=== PATIENT | female | born 1955 | race African-American/Black ===

== ENCOUNTER 2017-12-27 15:27 | Inpatient (IN) | payer OTHER ==
[2017-12-27 16:13] VITALS: BMI 23.3
--- NOTE | 2017-12-27 20:56 | HP ---
COWS - Scale Resting Pulse: 0= [place] 80 or Below Sweatin= Chills/Flushing Restless Observation: 1= Difficult to Sit Still Pupil Size: 1= Pupils >than Normal Bone or Joint Aches: 4=Acute Joint/Muscle Pain Runny Nose/ Eye Tearin= Runny Nose/Eyes GI Upset > 30mins: 2= Nausea/Diarrhea Tremor Observation: 2= Slight Tremor Visible Yawning Observation: 1= 1-2x During Session Anxiety or Irritability: 2=Irritable/Anxious Goose Flesh Skin: 0=Smooth Skin COWS Score: 16 Admission [facility] Chief Complaint: C/O WITHDRAWAL SX'S DUE TO HEROIN WITHDRAWAL. SEEKING DETOX TXMENT Allergies/Adverse Reactions: Allergies Allergy/AdvReac Type Severity Reaction Status Date / Time lactose Allergy Severe Vomiting Verified 12/27/17 17:09 History of Present Illness: 62 Y.O. FEMALE WITH LONG HX/O HEROIN DEPENDENCE HERE FOR ADMISSION TO DETOX. CLIENT REPORTS LAST DETOX/REHAB OVER 5 YEARS AGO. REFERRED BY HER SENIOR RESIDENCE COUNSELOR. REPORTS LONGEST CLEAN TIME 6 YEARS. DENIES LEGAL ISSUES Exam Limitations: No Limitations - Ebola screening Have you traveled outside of the country in the last 21 days: No (N) Have you had contact with anyone from an Ebola affected area: No Have you been sick,other than usual withdrawal symptoms: No Do you have a fever: No - Review of Systems Constitutional: Chills, Malaise, Night Sweats, Changes in sleep EENT: reports: Nose Congestion, Throat Pain Respiratory: reports: No Symptoms reported Cardiac: reports: No Symptoms Reported GI: reports: Diarrhea, Nausea, Poor Appetite, Poor Fluid Intake, Abdominal cramping : reports: No Symptoms Reported Musculoskeletal: reports: No Symptoms Reported Integumentary: reports: Other (HYPERPIGMENTATION OF THE SKIN) Neuro: reports: Headache Endocrine: reports: No Symptoms Reported Hematology: reports: No Symptoms Reported Psychiatric: reports: Anxious Other Systems: Reviewed and Negative Patient History - Patient Medical History Hx Asthma: No Hx Chronic Obstructive Pulmonary Disease (COPD): No Hx Cancer: Yes (MULTIPLE MYELOMA) Hx Cardiac Disorders: No Hx Congestive Heart Failure: No Hx Hypertension: No Hx Hypercholesterolemia: No Hx Pacemaker: No HX Cerebrovascular Accident: No Hx Seizures: No Hx Dementia: No Hx Diabetes: No Hx Gastrointestinal Disorders: Yes (GERD) Hx Liver Disease: No Hx Genitourinary Disorders: No Hx Sexually Transmitted Disorders: No Hx Renal Disease (ESRD): No Hx Thyroid Disease: No Hx Human Immunodeficiency Virus (HIV): No Hx Hepatitis C: No Hx Depression: Yes Hx Suicide Attempt: No Hx Bipolar Disorder: No Hx Schizophrenia: No Other Medical History: DENIES - Patient Surgical History Past Surgical History: No Hx Neurologic Surgery: No Hx Cataract Extraction: No Hx Cardiac Surgery: No Hx Lung Surgery: No Hx Breast Surgery: No Hx Breast Biopsy: No Hx Abdominal Surgery: No Hx Appendectomy: No Hx Cholecystectomy: No Hx Genitourinary Surgery: No Hx Section: No Hx Orthopedic Surgery: No Anesthesia Reaction: No - PPD History Previous Implant?: Yes Documented Results: Negative w/o proof Implanted On Prior R Admission?: No PPD to be Administered?: Yes - Reproductive History Patient is a Female of Child Bearing Age (11 -55 yrs old): No Patient : No (NEG UHCG) - Smoking Cessation Smoking history: Former smoker Have you smoked in the past 12 months: No Hx Chewing Tobacco Use: No Initiated information on smoking cessation: No - Substance & Tx. History Hx Alcohol Use: Yes Hx Substance Use: Yes Substance Use Type: Alcohol, Cocaine Hx Substance Use Treatment: Yes (DOES NOT RECALL) - Substances Abused Heroin Route: Inhalation Frequency: Daily Amount used: 5 bags Age of first use: 13 Date of Last Use: 12/27/17 Cocaine Route: Inhalation Frequency: Daily Amount used: 5 bags Age of first use: 14 Date of Last Use: 12/27/17 Family Disease History - Family Disease History Family Disease History: CA: Mother (LYMPH NODES) Admission Physical Exam BHS - Vital Signs Vital Signs: Vital Signs - 24 hr 12/27/17 16:10 Temperature 96.3 F L Pulse Rate 64 Respiratory 20 Rate Blood Pressure 127/84 - Physical General Appearance: Yes: Appropriately Dressed, Mild Distress, Tremorous, Irritable, Other (SLEEPING AT TIME BUT AROUSABLE) HEENTM: Yes: EOMI, Normal ENT Inspection, Normocephalic, PATRICK, Nasal Congestion , Pharyngeal Erythemia Respiratory: Yes: Chest Non-Tender, Lungs Clear, Normal Breath Sounds, No Respiratory Distress, No Accessory Muscle Use Neck: Yes: Supple, Trachea in good position, Other (+ LAD) Breast: Yes: Breast Exam Deferred Cardiology: Yes: Regular Rhythm, Regular Rate, S1, S2 Abdominal: Yes: Normal Bowel Sounds, Non Tender, Soft Genitourinary: Yes: Within Normal Limits Back: Yes: Normal Inspection Musculoskeletal: Yes: full range of Motion, Gait Steady Extremities: Yes: Normal Capillary Refill, Normal Range of Motion, Non-Tender, Tremors Neurological: Yes: Fully Oriented, Alert, Motor Strength 5/5 Integumentary: Yes: Dry, Other (HPERPIGMENTATION OF THE HANDS) Lymphatic: Yes: Within Normal Limits - Diagnostic (1) Opioid dependence with withdrawal Current Visit: Yes Status: Chronic (2) Cocaine dependence, uncomplicated Current Visit: Yes Status: Chronic (3) Pharyngitis Current Visit: Yes Status: Chronic Qualifiers: Pharyngitis/tonsillitis etiology: unspecified etiology Qualified Code(s): J02.9 - Acute pharyngitis, unspecified (4) GERD (gastroesophageal reflux disease) Current Visit: Yes Status: Chronic Qualifiers: Esophagitis presence: without esophagitis Qualified Code(s): K21.9 - Gastro -esophageal reflux disease without esophagitis Cleared for Admission [facility] - Detox or Rehab [facility] Level of Care: Medically Managed Detox Regimen/Protocol: Methadone Claeared for Rehab Admission: No [facility] Breath Alcohol Content Breath Alcohol Content: 0 Urine Pregancy Test - Result Urine Test Results: Negative- NO Line Present Urine Drug Screen - Results Drug Screen Negative: No Urine Drug Screen Results: LUCIO-Cocaine, OPI-Opiates
[2017-12-27] MEDS ORDERED: NICOTINE POLACRILEX 2 MG GUM BC PRN (21:02)
[2017-12-27] MEDS ORDERED: P-EPHED 60MG/TRIPROLIDI 2.5MG TABLET PO PRN (21:02)
[2017-12-27] MEDS ORDERED: MENTHOL/PHENOL 1 EACH UD MM PRN (21:02)
[2017-12-27] MEDS ORDERED: IBUPROFEN 400 MG TABLET (FP) PO PRN (21:02)
[2017-12-27] MEDS ORDERED: MAGNESIUM HYDROX 2400MG/30ML ORAL SUSPENSION 30 ML CUP PO PRN (21:02)
[2017-12-27] MEDS ORDERED: MAGNESIUM CITRATE 300 ML BOTTLE PO PRN (21:02)
[2017-12-27] MEDS ORDERED: METHADONE HCL 10 MG TABLET (FOR DETOX USE ONLY) PO ONE (21:02)
[2017-12-27] MEDS ORDERED: guaiFENesin/D-METHORPHAN HB 10 ML UNIT-DOSE CUPS PO PRN (21:02)
[2017-12-27] MEDS ORDERED: MAG HYDROX/AL HYDROX/SIMETH 30 ML UNIT-DOSE CUP PO PRN (21:02)
[2017-12-27] MEDS ORDERED: LOPERAMIDE HCL 2 MG CAPSULE PO PRN (21:02)
[2017-12-27] MEDS: THIAMINE HCL 100 MG TABLET (FP) PO SCH (22:59)
[2017-12-27] MEDS: METHADONE HCL 10 MG TABLET (FOR DETOX USE ONLY) PO ONE (22:59)
[2017-12-27] MEDS: AMOXICILLIN 500 MG CAPSULE (FP) PO SCH (23:02)
[2017-12-27 23:03] LABS: URINE APPEARANCE SLCLOUDY; URINE BILIRUBIN NEGATIVE (NEGATIVE); URINE BLOOD NEGATIVE (NEGATIVE); URINE COLOR YELLOW; URINE GLUCOSE (UA) NEGATIVE (NEGATIVE); URINE KETONE NEGATIVE (NEGATIVE); URINE NITRITE NEGATIVE (NEGATIVE); URINE PROTEIN NEGATIVE (NEGATIVE); URINE UROBILINOGEN NEGATIVE mg/dL (0.2-1.0)
[2017-12-27 23:09] LABS: URINE LEUK ESTERASE 3+ (NEGATIVE)
[2017-12-27 23:12] LABS: EPI CELLS FEW /HPF (FEW); URINE BACTERIA RARE /hpf (NONE SEEN); URINE MUCUS RARE
[2017-12-28] MEDS ORDERED: METHADONE HCL 10 MG TABLET (FOR DETOX USE ONLY) PO ONE (10:00)
[2017-12-28] MEDS: AMOXICILLIN 500 MG CAPSULE (FP) PO SCH ×2 (10:30→22:29)
[2017-12-28] MEDS: PRENATAL VITAMINS W/ FOLIC ACID TABLET (FP) PO SCH (10:30)
[2017-12-28] MEDS: diazePAM 5 MG TABLET PO PRN ×2 (10:30→17:53)
[2017-12-28 10:50] LABS: HEMATOCRIT 32.9 % (32.4-45.2); HEMOGLOBIN 11.1 GM/dL (10.7-15.3); MCH 30.5 pg (25.7-33.7); MCHC 33.6 g/dl (32.0-36.0); MEAN CELL VOLUME 90.8 fl (80-96); MEAN PLT VOLUME 8.3 fl (7.5-11.1); PLATELET COUNT 311 K/MM3 (134-434); RBC 3.62 M/mm3 (3.60-5.2); RDW 16.3 % (11.6-15.6)
[2017-12-28 11:22] LABS: CHLORIDE 105 mmol/L (98-107); POTASSIUM 4.1 mmol/L (3.5-5.1); SODIUM 143 mmol/L (136-145)
[2017-12-28 11:43] LABS: ALBUMIN 3.1 g/dl (3.4-5.0); ALK PHOS 38 U/L (45-117); ANION GAP 8 (8-16); BILIRUBIN,TOTAL 1.2 mg/dL (0.2-1.0); BLOOD UREA NITROGEN 13 mg/dL (7-18); CALCIUM 9.1 mg/dL (8.5-10.1); CO2 30 mmol/L (21-32); CREATININE 0.8 mg/dL (0.55-1.02); GLUCOSE,RANDOM 86 mg/dL (74-106); SGOT/AST 24 U/L (15-37); SGPT/ALT 14 U/L (12-78); TOT PROT 7.9 g/dl (6.4-8.2)
--- NOTE | 2017-12-28 12:03 | PN ---
BHS COWS - Scale Resting Pulse: 0= [place] 80 or Below Sweatin= Chills/Flushing Restless Observation: 3= Extraneous Movement Pupil Size: 1= Pupils >than Normal Bone or Joint Aches: 2= Severe Diffuse Aches Runny Nose/ Eye Tearin= Runny Nose/Eyes GI Upset > 30mins: 3= Vomiting/Diarrhea Tremor Observation of Outstretched Hands: 2= Slight Tremor Visible Yawning Observation: 1= 1-2x During Session Anxiety or Irritability: 2=Irritable/Anxious Goose Flesh Skin: 0=Smooth Skin COWS Score: 17 S Progress Note (SOAP) Subjective: ALERT,IRRITABLE,ANXIOUS,INTERRUPTED SLEEP,TREMOR,PAIN IN THE BODY AND BACK Objective: 12/28/17 12:00 Vital Signs Temperature 97.7 F 12/28/17 10:10 Pulse Rate 57 L 12/28/17 10:10 Respiratory Rate 16 12/28/17 10:10 Blood Pressure 154/72 12/28/17 10:10 O2 Sat by Pulse Oximetry (%) EKG SINUS BRADYCARDIA 53/MIN NO CHEST PAIN,NO SOB,NO DIZZINESS Laboratory Last Values WBC 8.0 K/mm3 (4.0-10.0) 12/28/17 07:50 RBC 3.62 M/mm3 (3.60-5.2) 12/28/17 07:50 Hgb 11.1 GM/dL (10.7-15.3) 12/28/17 07:50 Hct 32.9 % (32.4-45.2) 12/28/17 07:50 MCV 90.8 fl (80-96) 12/28/17 07:50 MCH 30.5 pg (25.7-33.7) 12/28/17 07:50 MCHC 33.6 g/dl (32.0-36.0) 12/28/17 07:50 RDW 16.3 % (11.6-15.6) H 12/28/17 07:50 Plt Count 311 K/MM3 (134-434) 12/28/17 07:50 MPV 8.3 fl (7.5-11.1) 12/28/17 07:50 Sodium 143 mmol/L (136-145) 12/28/17 07:50 Potassium 4.1 mmol/L (3.5-5.1) 12/28/17 07:50 Chloride 105 mmol/L (98-107) 12/28/17 07:50 Carbon Dioxide 30 mmol/L (21-32) 12/28/17 07:50 Anion Gap 8 (8-16) 12/28/17 07:50 BUN 13 mg/dL (7-18) 12/28/17 07:50 Creatinine 0.8 mg/dL (0.55-1.02) 12/28/17 07:50 Creat Clearance w eGFR > 60 (>60) 12/28/17 07:50 Random Glucose 86 mg/dL (74-106) 12/28/17 07:50 Calcium 9.1 mg/dL (8.5-10.1) 12/28/17 07:50 Total Bilirubin 1.2 mg/dL (0.2-1.0) H 12/28/17 07:50 AST 24 U/L (15-37) 12/28/17 07:50 ALT 14 U/L (12-78) 12/28/17 07:50 Alkaline Phosphatase 38 U/L (45-117) L 12/28/17 07:50 Total Protein 7.9 g/dl (6.4-8.2) 12/28/17 07:50 Albumin 3.1 g/dl (3.4-5.0) L 12/28/17 07:50 Urine Color Yellow 12/27/17 22:28 Urine Appearance Slcloudy 12/27/17 22:28 Urine pH 5.0 (5.0-8.0) 12/27/17 22:28 Ur Specific [place] 1.012 (1.001-1.035) 12/27/17 22:28 Urine Protein Negative (NEGATIVE) 12/27/17 22:28 Urine Glucose (UA) Negative (NEGATIVE) 12/27/17 22:28 Urine Ketones Negative (NEGATIVE) 12/27/17 22:28 Urine Blood Negative (NEGATIVE) 12/27/17 22:28 Urine Nitrite Negative (NEGATIVE) 12/27/17 22:28 Urine Bilirubin Negative (NEGATIVE) 12/27/17 22:28 Urine Urobilinogen Negative mg/dL (0.2-1.0) 12/27/17 22:28 Ur Leukocyte Esterase 3+ (NEGATIVE) H 12/27/17 22:28 Urine WBC (Auto) 8 /hpf (3-5) 12/27/17 22:28 Urine RBC (Auto) 4 /hpf (0-3) 12/27/17 22:28 Ur Epithelial Cells Few /HPF (FEW) 12/27/17 22:28 Urine Bacteria Rare /hpf (NONE SEEN) 12/27/17 22:28 Urine Mucus Rare 12/27/17 22:28 12/28/17 12:03 LABS PENDING Assessment: 12/28/17 12:03 WITHDRAWAL SYMPTOM Plan: CONTINUE DETOX
--- NOTE | 2017-12-28 17:35 | CONSULT ---
[facility] Psychiatric Consult - Data Date of interview: 12/28/17 Admission source: [facility] Identifying data: First admission to [facility] [place] for this 62 y/o Aa female seeking detox treatment on for heroin and cocaine (crack) dependence.Patient is single,a mother of one,domiciled,unemployed and supported on welfare. Substance Abuse History: Confirmed by patient in this interview.See details in current [facility] report . Smoking history: Former smoker. Have you smoked in the past 12 months: No. Hx Chewing Tobacco Use: No. Initiated information on smoking cessation: No. - Substance & Tx. History. Hx Alcohol Use: Yes. Hx Substance Use: Yes. Substance Use Type: Alcohol, Cocaine. Hx Substance Use Treatment: Yes (DOES NOT RECALL). - Substances Abused. Heroin. Route: Inhalation. Frequency: Daily. Amount used: 5 bags. Age of first use: 13. Date of Last Use: 12/27/17. Cocaine. Route: Inhalation. Frequency: Daily. Amount used: 5 bags. Age of first use: 14. Date of Last Use: 12/27/17 Medical History: Hepatitis A,GERD,right breast mass (as per [facility] report) and recent diagnosis of multiple myeloma (self-report). Psychiatric History: Patient denies history of psychiatric illness or hospitalizations.Ms Lux denies history of suicide attempts. Physical/Sexual Abuse/Trauma History: Patient denies history of abuse.Traumatized by her recent diagnosis of multiple myeloma. Additional Comment: Urine Drug Screen Results: LUCIO-Cocaine, OPI-Opiates.Noted. Mental Status Exam - Mental Status Exam Alert and Oriented to: Time, Place, Person Cognitive Function: Grossly Intact Patient Appearance: Well Groomed Mood: Nervous, Withdrawn, Anxious Affect: Mood Congruent, Constricted Patient Behavior: Sedated (mildly sedated), Fatigued Speech Pattern: Clear, Appropriate, Delayed Voice Loudness: Normal Thought Process: Goal Oriented Thought Disorder: Not Present Hallucinations: Denies Suicidal Ideation: Denies Homicidal Ideation: Denies Insight/Judgement: Poor Sleep: Well Appetite: Good Muscle strength/Tone: Normal Gait/Station: Other (not observed ; patient supine through entire length of psychiatric interview) Psychiatric Findings - Problem List ([place] 1, 2,3) (1) Opioid dependence with withdrawal Current Visit: Yes Status: Acute (2) Cocaine dependence, uncomplicated Current Visit: Yes Status: Acute - Initial Treatment Plan Initial Treatment Plan: Psychoeducation,support and empathy provided to patient in this session.Detoxification in progress.Falls precautions.Observation.
[2017-12-28] MEDS: ACETAMINOPHEN 325 MG TABLET (FP) PO PRN (18:58)
[2017-12-28] MEDS: THIAMINE HCL 100 MG TABLET (FP) PO SCH (22:29)
[2017-12-29] MEDS ORDERED: METHADONE HCL 5 MG TABLET (FOR DETOX USE ONLY) PO ONE (10:00)
[2017-12-29] MEDS: PRENATAL VITAMINS W/ FOLIC ACID TABLET (FP) PO SCH (10:47)
[2017-12-29] MEDS: AMOXICILLIN 500 MG CAPSULE (FP) PO SCH ×2 (10:47→22:24)
--- NOTE | 2017-12-29 13:20 | EKG ---
Test Reason : Blood Pressure : / mmHG Vent. Rate : 053 BPM Atrial Rate : 053 BPM P-R Int : 128 ms QRS Dur : 090 ms QT Int : 380 ms P-R-T Axes : 060 005 034 degrees QTc Int : 356 ms SINUS BRADYCARDIA MODERATE VOLTAGE CRITERIA FOR LVH, MAY BE NORMAL VARIANT T WAVE ABNORMALITY, CONSIDER INFERIOR ISCHEMIA ABNORMAL ECG NO PREVIOUS ECGS AVAILABLE BASELINE ARTIFACT Confirmed by STEFAN CHIRINOS, CAREY ([id number]) on 12/29/2017 1:19:42 PM Referred By: Confirmed By:CAREY AVILES MD
--- NOTE | 2017-12-29 13:21 | PN ---
BHS COWS - Scale Resting Pulse: 0= [place] 80 or Below Sweatin= Chills/Flushing Restless Observation: 1= Difficult to Sit Still Pupil Size: 1= Pupils >than Normal Bone or Joint Aches: 2= Severe Diffuse Aches Runny Nose/ Eye Tearin= Runny Nose/Eyes GI Upset > 30mins: 1= Stomach Cramp Tremor Observation of Outstretched Hands: 2= Slight Tremor Visible Yawning Observation: 2= >3x During Session Anxiety or Irritability: 1=Feels Anxious/Irritable Goose Flesh Skin: 0=Smooth Skin COWS Score: 13 S Progress Note (SOAP) Subjective: joint ache GI distress sweat restlessness anxiety sweat Objective: 12/29/17 13:24 Vital Signs Temperature 97.9 F 12/29/17 10:13 Pulse Rate 69 12/29/17 10:13 Respiratory Rate 16 12/29/17 10:13 Blood Pressure 120/66 12/29/17 10:13 O2 Sat by Pulse Oximetry (%) Laboratory Last Values WBC 8.0 K/mm3 (4.0-10.0) 12/28/17 07:50 RBC 3.62 M/mm3 (3.60-5.2) 12/28/17 07:50 Hgb 11.1 GM/dL (10.7-15.3) 12/28/17 07:50 Hct 32.9 % (32.4-45.2) 12/28/17 07:50 MCV 90.8 fl (80-96) 12/28/17 07:50 MCH 30.5 pg (25.7-33.7) 12/28/17 07:50 MCHC 33.6 g/dl (32.0-36.0) 12/28/17 07:50 RDW 16.3 % (11.6-15.6) H 12/28/17 07:50 Plt Count 311 K/MM3 (134-434) 12/28/17 07:50 MPV 8.3 fl (7.5-11.1) 12/28/17 07:50 Sodium 143 mmol/L (136-145) 12/28/17 07:50 Potassium 4.1 mmol/L (3.5-5.1) 12/28/17 07:50 Chloride 105 mmol/L (98-107) 12/28/17 07:50 Carbon Dioxide 30 mmol/L (21-32) 12/28/17 07:50 Anion Gap 8 (8-16) 12/28/17 07:50 BUN 13 mg/dL (7-18) 12/28/17 07:50 Creatinine 0.8 mg/dL (0.55-1.02) 12/28/17 07:50 Creat Clearance w eGFR > 60 (>60) 12/28/17 07:50 Random Glucose 86 mg/dL (74-106) 12/28/17 07:50 Calcium 9.1 mg/dL (8.5-10.1) 12/28/17 07:50 Total Bilirubin 1.2 mg/dL (0.2-1.0) H 12/28/17 07:50 AST 24 U/L (15-37) 12/28/17 07:50 ALT 14 U/L (12-78) 12/28/17 07:50 Alkaline Phosphatase 38 U/L (45-117) L 12/28/17 07:50 Total Protein 7.9 g/dl (6.4-8.2) 12/28/17 07:50 Albumin 3.1 g/dl (3.4-5.0) L 12/28/17 07:50 Urine Color Yellow 12/27/17 22:28 Urine Appearance Slcloudy 12/27/17 22:28 Urine pH 5.0 (5.0-8.0) 12/27/17 22:28 Ur Specific [place] 1.012 (1.001-1.035) 12/27/17 22:28 Urine Protein Negative (NEGATIVE) 12/27/17 22:28 Urine Glucose (UA) Negative (NEGATIVE) 12/27/17 22:28 Urine Ketones Negative (NEGATIVE) 12/27/17 22:28 Urine Blood Negative (NEGATIVE) 12/27/17 22:28 Urine Nitrite Negative (NEGATIVE) 12/27/17 22:28 Urine Bilirubin Negative (NEGATIVE) 12/27/17 22:28 Urine Urobilinogen Negative mg/dL (0.2-1.0) 12/27/17 22:28 Ur Leukocyte Esterase 3+ (NEGATIVE) H 12/27/17 22:28 Urine WBC (Auto) 8 /hpf (3-5) 12/27/17 22:28 Urine RBC (Auto) 4 /hpf (0-3) 12/27/17 22:28 Ur Epithelial Cells Few /HPF (FEW) 12/27/17 22:28 Urine Bacteria Rare /hpf (NONE SEEN) 12/27/17 22:28 Urine Mucus Rare 12/27/17 22:28 RPR Titer Nonreactive (NONREACTIVE) 12/28/17 07:50 Hepatitis C Antibody 0.2 s/co ratio (0.0-0.9) 12/28/17 07:50 lab noted Assessment: 12/29/17 13:25 withdrawal sx Plan: continue detox
[2017-12-29] MEDS ORDERED: COLLOIDAL OATMEAL 1 BAR EACH TP PRN (14:29)
[2017-12-29] MEDS: THIAMINE HCL 100 MG TABLET (FP) PO SCH (22:23)
--- NOTE | 2017-12-30 09:49 | PN ---
BHS Progress Note (SOAP) Subjective: joint aches tremor sweat irritable Objective: 12/30/17 09:48 Vital Signs Temperature 98.6 F 12/30/17 06:24 Pulse Rate 66 12/30/17 06:24 Respiratory Rate 16 12/30/17 06:24 Blood Pressure 108/65 12/30/17 06:24 O2 Sat by Pulse Oximetry (%) Laboratory Last Values WBC 8.0 K/mm3 (4.0-10.0) 12/28/17 07:50 RBC 3.62 M/mm3 (3.60-5.2) 12/28/17 07:50 Hgb 11.1 GM/dL (10.7-15.3) 12/28/17 07:50 Hct 32.9 % (32.4-45.2) 12/28/17 07:50 MCV 90.8 fl (80-96) 12/28/17 07:50 MCH 30.5 pg (25.7-33.7) 12/28/17 07:50 MCHC 33.6 g/dl (32.0-36.0) 12/28/17 07:50 RDW 16.3 % (11.6-15.6) H 12/28/17 07:50 Plt Count 311 K/MM3 (134-434) 12/28/17 07:50 MPV 8.3 fl (7.5-11.1) 12/28/17 07:50 Sodium 143 mmol/L (136-145) 12/28/17 07:50 Potassium 4.1 mmol/L (3.5-5.1) 12/28/17 07:50 Chloride 105 mmol/L (98-107) 12/28/17 07:50 Carbon Dioxide 30 mmol/L (21-32) 12/28/17 07:50 Anion Gap 8 (8-16) 12/28/17 07:50 BUN 13 mg/dL (7-18) 12/28/17 07:50 Creatinine 0.8 mg/dL (0.55-1.02) 12/28/17 07:50 Creat Clearance w eGFR > 60 (>60) 12/28/17 07:50 Random Glucose 86 mg/dL (74-106) 12/28/17 07:50 Calcium 9.1 mg/dL (8.5-10.1) 12/28/17 07:50 Total Bilirubin 1.2 mg/dL (0.2-1.0) H 12/28/17 07:50 AST 24 U/L (15-37) 12/28/17 07:50 ALT 14 U/L (12-78) 12/28/17 07:50 Alkaline Phosphatase 38 U/L (45-117) L 12/28/17 07:50 Total Protein 7.9 g/dl (6.4-8.2) 12/28/17 07:50 Albumin 3.1 g/dl (3.4-5.0) L 12/28/17 07:50 Urine Color Yellow 12/27/17 22:28 Urine Appearance Slcloudy 12/27/17 22:28 Urine pH 5.0 (5.0-8.0) 12/27/17 22:28 Ur Specific [place] 1.012 (1.001-1.035) 12/27/17 22:28 Urine Protein Negative (NEGATIVE) 12/27/17 22:28 Urine Glucose (UA) Negative (NEGATIVE) 12/27/17 22:28 Urine Ketones Negative (NEGATIVE) 12/27/17 22:28 Urine Blood Negative (NEGATIVE) 12/27/17 22:28 Urine Nitrite Negative (NEGATIVE) 12/27/17 22:28 Urine Bilirubin Negative (NEGATIVE) 12/27/17 22:28 Urine Urobilinogen Negative mg/dL (0.2-1.0) 12/27/17 22:28 Ur Leukocyte Esterase 3+ (NEGATIVE) H 12/27/17 22:28 Urine WBC (Auto) 8 /hpf (3-5) 12/27/17 22:28 Urine RBC (Auto) 4 /hpf (0-3) 12/27/17 22:28 Ur Epithelial Cells Few /HPF (FEW) 12/27/17 22:28 Urine Bacteria Rare /hpf (NONE SEEN) 12/27/17 22:28 Urine Mucus Rare 12/27/17 22:28 RPR Titer Nonreactive (NONREACTIVE) 12/28/17 07:50 Hepatitis C Antibody 0.2 s/co ratio (0.0-0.9) 12/28/17 07:50 lab noted Assessment: 12/30/17 09:49 withdrawal sx Plan: continue detox
[2017-12-30] MEDS ORDERED: METHADONE HCL 5 MG TABLET (FOR DETOX USE ONLY) PO ONE (10:00)
[2017-12-30] MEDS: AMOXICILLIN 500 MG CAPSULE (FP) PO SCH ×2 (10:33→22:04)
[2017-12-30] MEDS: PRENATAL VITAMINS W/ FOLIC ACID TABLET (FP) PO SCH (10:33)
[2017-12-30] MEDS: THIAMINE HCL 100 MG TABLET (FP) PO SCH (22:04)
--- NOTE | 2017-12-31 09:34 | PN ---
S Progress Note (SOAP) Subjective: mild gi upset tolerate food and fluid well less joint aches no sweat at night Objective: 12/31/17 09:33 Vital Signs Temperature 98.2 F 12/31/17 06:00 Pulse Rate 69 12/31/17 06:00 Respiratory Rate 18 12/31/17 06:00 Blood Pressure 117/76 12/31/17 06:00 O2 Sat by Pulse Oximetry (%) Laboratory Last Values WBC 8.0 K/mm3 (4.0-10.0) 12/28/17 07:50 RBC 3.62 M/mm3 (3.60-5.2) 12/28/17 07:50 Hgb 11.1 GM/dL (10.7-15.3) 12/28/17 07:50 Hct 32.9 % (32.4-45.2) 12/28/17 07:50 MCV 90.8 fl (80-96) 12/28/17 07:50 MCH 30.5 pg (25.7-33.7) 12/28/17 07:50 MCHC 33.6 g/dl (32.0-36.0) 12/28/17 07:50 RDW 16.3 % (11.6-15.6) H 12/28/17 07:50 Plt Count 311 K/MM3 (134-434) 12/28/17 07:50 MPV 8.3 fl (7.5-11.1) 12/28/17 07:50 Sodium 143 mmol/L (136-145) 12/28/17 07:50 Potassium 4.1 mmol/L (3.5-5.1) 12/28/17 07:50 Chloride 105 mmol/L (98-107) 12/28/17 07:50 Carbon Dioxide 30 mmol/L (21-32) 12/28/17 07:50 Anion Gap 8 (8-16) 12/28/17 07:50 BUN 13 mg/dL (7-18) 12/28/17 07:50 Creatinine 0.8 mg/dL (0.55-1.02) 12/28/17 07:50 Creat Clearance w eGFR > 60 (>60) 12/28/17 07:50 Random Glucose 86 mg/dL (74-106) 12/28/17 07:50 Calcium 9.1 mg/dL (8.5-10.1) 12/28/17 07:50 Total Bilirubin 1.2 mg/dL (0.2-1.0) H 12/28/17 07:50 AST 24 U/L (15-37) 12/28/17 07:50 ALT 14 U/L (12-78) 12/28/17 07:50 Alkaline Phosphatase 38 U/L (45-117) L 12/28/17 07:50 Total Protein 7.9 g/dl (6.4-8.2) 12/28/17 07:50 Albumin 3.1 g/dl (3.4-5.0) L 12/28/17 07:50 Urine Color Yellow 12/27/17 22:28 Urine Appearance Slcloudy 12/27/17 22:28 Urine pH 5.0 (5.0-8.0) 12/27/17 22:28 Ur Specific [place] 1.012 (1.001-1.035) 12/27/17 22:28 Urine Protein Negative (NEGATIVE) 12/27/17 22:28 Urine Glucose (UA) Negative (NEGATIVE) 12/27/17 22:28 Urine Ketones Negative (NEGATIVE) 12/27/17 22:28 Urine Blood Negative (NEGATIVE) 12/27/17 22:28 Urine Nitrite Negative (NEGATIVE) 12/27/17 22:28 Urine Bilirubin Negative (NEGATIVE) 12/27/17 22:28 Urine Urobilinogen Negative mg/dL (0.2-1.0) 12/27/17 22:28 Ur Leukocyte Esterase 3+ (NEGATIVE) H 12/27/17 22:28 Urine WBC (Auto) 8 /hpf (3-5) 12/27/17 22:28 Urine RBC (Auto) 4 /hpf (0-3) 12/27/17 22:28 Ur Epithelial Cells Few /HPF (FEW) 12/27/17 22:28 Urine Bacteria Rare /hpf (NONE SEEN) 12/27/17 22:28 Urine Mucus Rare 12/27/17 22:28 RPR Titer Nonreactive (NONREACTIVE) 12/28/17 07:50 Hepatitis C Antibody 0.2 s/co ratio (0.0-0.9) 12/28/17 07:50 lab noted Assessment: 12/31/17 09:33 mild withdrawal sx Plan: medically supervised detox
[2017-12-31] MEDS ORDERED: METHADONE HCL 10 MG TABLET (FOR DETOX USE ONLY) PO ONE (10:00)
[2017-12-31] MEDS: PRENATAL VITAMINS W/ FOLIC ACID TABLET (FP) PO SCH (10:42)
[2017-12-31] MEDS: AMOXICILLIN 500 MG CAPSULE (FP) PO SCH ×2 (10:42→22:12)
[2017-12-31] MEDS: THIAMINE HCL 100 MG TABLET (FP) PO SCH (22:12)
[2018-01-01] MEDS: ACETAMINOPHEN 325 MG TABLET (FP) PO PRN (05:02)
[2018-01-01] MEDS ORDERED: METHADONE HCL 5 MG TABLET (FOR DETOX USE ONLY) PO ONE (06:00)
--- NOTE | 2018-01-01 08:20 | DS ---
[facility] Detox Discharge Summary Admission Date: 12/27/17 Discharge Date: 01/01/18 - History Present History: Opioid Dependence - Physical Exam Results Vital Signs: Vital Signs Temperature 98 F 01/01/18 06:23 Pulse Rate 63 01/01/18 06:23 Respiratory Rate 16 01/01/18 06:23 Blood Pressure 118/68 01/01/18 06:23 O2 Sat by Pulse Oximetry (%) Pertinent Admission Physical Exam Findings: withdrawal sx Vital Signs Temperature 98 F 01/01/18 06:23 Pulse Rate 63 01/01/18 06:23 Respiratory Rate 16 01/01/18 06:23 Blood Pressure 118/68 01/01/18 06:23 O2 Sat by Pulse Oximetry (%) Laboratory Last Values WBC 8.0 K/mm3 (4.0-10.0) 12/28/17 07:50 RBC 3.62 M/mm3 (3.60-5.2) 12/28/17 07:50 Hgb 11.1 GM/dL (10.7-15.3) 12/28/17 07:50 Hct 32.9 % (32.4-45.2) 12/28/17 07:50 MCV 90.8 fl (80-96) 12/28/17 07:50 MCH 30.5 pg (25.7-33.7) 12/28/17 07:50 MCHC 33.6 g/dl (32.0-36.0) 12/28/17 07:50 RDW 16.3 % (11.6-15.6) H 12/28/17 07:50 Plt Count 311 K/MM3 (134-434) 12/28/17 07:50 MPV 8.3 fl (7.5-11.1) 12/28/17 07:50 Sodium 143 mmol/L (136-145) 12/28/17 07:50 Potassium 4.1 mmol/L (3.5-5.1) 12/28/17 07:50 Chloride 105 mmol/L (98-107) 12/28/17 07:50 Carbon Dioxide 30 mmol/L (21-32) 12/28/17 07:50 Anion Gap 8 (8-16) 12/28/17 07:50 BUN 13 mg/dL (7-18) 12/28/17 07:50 Creatinine 0.8 mg/dL (0.55-1.02) 12/28/17 07:50 Creat Clearance w eGFR > 60 (>60) 12/28/17 07:50 Random Glucose 86 mg/dL (74-106) 12/28/17 07:50 Calcium 9.1 mg/dL (8.5-10.1) 12/28/17 07:50 Total Bilirubin 1.2 mg/dL (0.2-1.0) H 12/28/17 07:50 AST 24 U/L (15-37) 12/28/17 07:50 ALT 14 U/L (12-78) 12/28/17 07:50 Alkaline Phosphatase 38 U/L (45-117) L 12/28/17 07:50 Total Protein 7.9 g/dl (6.4-8.2) 12/28/17 07:50 Albumin 3.1 g/dl (3.4-5.0) L 12/28/17 07:50 Urine Color Yellow 12/27/17 22:28 Urine Appearance Slcloudy 12/27/17 22:28 Urine pH 5.0 (5.0-8.0) 12/27/17 22:28 Ur Specific Chunky 1.012 (1.001-1.035) 12/27/17 22:28 Urine Protein Negative (NEGATIVE) 12/27/17 22:28 Urine Glucose (UA) Negative (NEGATIVE) 12/27/17 22:28 Urine Ketones Negative (NEGATIVE) 12/27/17 22:28 Urine Blood Negative (NEGATIVE) 12/27/17 22:28 Urine Nitrite Negative (NEGATIVE) 12/27/17 22:28 Urine Bilirubin Negative (NEGATIVE) 12/27/17 22:28 Urine Urobilinogen Negative mg/dL (0.2-1.0) 12/27/17 22:28 Ur Leukocyte Esterase 3+ (NEGATIVE) H 12/27/17 22:28 Urine WBC (Auto) 8 /hpf (3-5) 12/27/17 22:28 Urine RBC (Auto) 4 /hpf (0-3) 12/27/17 22:28 Ur Epithelial Cells Few /HPF (FEW) 12/27/17 22:28 Urine Bacteria Rare /hpf (NONE SEEN) 12/27/17 22:28 Urine Mucus Rare 12/27/17 22:28 RPR Titer Nonreactive (NONREACTIVE) 12/28/17 07:50 Hepatitis C Antibody 0.2 s/co ratio (0.0-0.9) 12/28/17 07:50 lab noted - Treatment Hospital Course: Detox Protocol Followed, Detoxed Safely, Responded well, Discharged Condition Good, Rehab Referral Accepted Patient has Accepted a Rehab Referral to: as per counselor arranged - Medication Discharge Medications: Ambulatory Orders Unobtainable [Unobtainable] 12/27/17 - Diagnosis (1) Opioid dependence with withdrawal Current Visit: Yes Status: Acute - AMA Did Patient Leave Against Medical Advice: No
[2018-01-01 10:06] VITALS: BP 126/88; PULSE 62; TEMP 98
[2018-01-01] MEDS: AMOXICILLIN 500 MG CAPSULE (FP) PO SCH (10:55)
[2018-01-01] MEDS: PRENATAL VITAMINS W/ FOLIC ACID TABLET (FP) PO SCH (10:55)
== END 2018-01-01 11:55 | disposition other institution (70) | DRG 773 ==
LOC: YASAS 15:27 → Y6N 18:09
PROVIDERS: ADMIT Internal Medicine; ATTEND Internal Medicine
PROC: HZ2ZZZZ Detoxification Services for Substance Abuse Treatment (ICD-10-PCS; principal; 2017-12-27)
DX: F11.23 Opioid dependence with withdrawal (principal); F14.20 Cocaine dependence, uncomplicated; J02.9 Acute pharyngitis, unspecified; K21.9 Gastro-esophageal reflux disease without esophagitis; R00.1 Bradycardia, unspecified; C90.00 Multiple myeloma not having achieved remission; Z91.011 Allergy to milk products; Z87.891 Personal history of nicotine dependence
CPT/HCPCS: 36415; 80053; 81003; 81015; 85027; 86593; 86803; 93005; 93010

== ENCOUNTER 2018-01-01 11:34 | Inpatient (IN) | payer OTHER ==
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
--- NOTE | 2018-01-01 12:58 | HP ---
DAVID CHIRINOS Rehab Assess/Revision - Admission History Admitted to Rehab from: [facility] Date of Admission to Rehab: 01/01/18 - Vital signs Vital Signs: Vital Signs Period Temp Pulse Resp BP Sys/Mullen Pulse Ox Last 24 Hr 97.1 F 87 18 128/80 - Findings Detox History & Physical reviewed: Yes Concur with findings: Yes Comments/Additional Findings: for rehab as protocol Inpatient Rehab Admission - Initial Determination Are CD services needed?: Yes Free of communicable disease: Yes Not in need of hospitalization: Yes - Rehab Admission Criteria Previous failed treatment: Yes Poor recovery environment: Yes Comorbidities: Yes Patient is meeting Inpatient Rehab admission criteria:: Yes
[2018-01-01] MEDS ORDERED: MAGNESIUM CITRATE 300 ML BOTTLE PO PRN (12:59)
[2018-01-01] MEDS ORDERED: P-EPHED 60MG/TRIPROLIDI 2.5MG TABLET PO PRN (12:59)
[2018-01-01] MEDS ORDERED: MAGNESIUM HYDROX 2400MG/30ML ORAL SUSPENSION 30 ML CUP PO PRN (12:59)
[2018-01-01] MEDS ORDERED: guaiFENesin/D-METHORPHAN HB 10 ML UNIT-DOSE CUPS PO PRN (12:59)
[2018-01-01] MEDS ORDERED: MENTHOL/PHENOL 1 EACH UD MM PRN (12:59)
[2018-01-01] MEDS ORDERED: IBUPROFEN 400 MG TABLET (FP) PO PRN (12:59)
[2018-01-01] MEDS ORDERED: LOPERAMIDE HCL 2 MG CAPSULE PO PRN (12:59)
[2018-01-01] MEDS ORDERED: hydrOXYzine PAMOATE 50 MG CAPSULE (FP) PO PRN (12:59)
[2018-01-01] MEDS: THIAMINE HCL 100 MG TABLET (FP) PO SCH (21:39)
[2018-01-02] MEDS: PRENATAL VITAMINS W/ FOLIC ACID TABLET (FP) PO SCH (10:21)
--- NOTE | 2018-01-02 10:54 | PN ---
[facility] Progress Note (SOAP) Subjective: throat pain congestion on my chest Objective: 01/02/18 10:53 Vital Signs Temperature 97.9 F 01/02/18 10:41 Pulse Rate 80 01/02/18 10:41 Respiratory Rate 18 01/02/18 10:41 Blood Pressure 109/71 01/02/18 10:41 O2 Sat by Pulse Oximetry (%) aaox3 ambulating no acute distress Assessment: 01/02/18 10:53 throat appears [place] lungs CTA Plan: mycelex troches continue amoxicillin as previous ordered chest x-ray ordered r/o pna
[2018-01-02] MEDS: AMOXICILLIN 500 MG CAPSULE (FP) PO SCH ×2 (12:29→21:44)
[2018-01-02] MEDS: CLOTRIMAZOLE 10 MG TROCHE (FP) PO SCH ×3 (14:15→21:45)
[2018-01-02] MEDS: ACETAMINOPHEN 325 MG TABLET (FP) PO PRN (18:03)
[2018-01-02] MEDS: THIAMINE HCL 100 MG TABLET (FP) PO SCH (21:44)
[2018-01-03] MEDS: CLOTRIMAZOLE 10 MG TROCHE (FP) PO SCH ×5 (07:02→21:32)
[2018-01-03] MEDS: PRENATAL VITAMINS W/ FOLIC ACID TABLET (FP) PO SCH (10:59)
[2018-01-03] MEDS: AMOXICILLIN 500 MG CAPSULE (FP) PO SCH ×2 (10:59→21:32)
[2018-01-03] MEDS: COLLOIDAL OATMEAL 1 BAR EACH TP PRN (13:28)
[2018-01-03] MEDS: MAG HYDROX/AL HYDROX/SIMETH 30 ML UNIT-DOSE CUP PO PRN (13:30)
--- NOTE | 2018-01-03 17:27 | PN ---
S Progress Note (SOAP) Subjective: c/o protracted opioid withdrawal sx, does not want to be on suboxone program but willing to take 2mg daily to relieve symptoms while in rehab. Objective: 01/03/18 17:22 Vital Signs - 24 hr 01/03/18 01/03/18 01/03/18 00:30 03:30 07:48 Temperature 98.0 F Pulse Rate 74 Respiratory 18 18 18 Rate Blood Pressure 116/59 Laboratory Tests 01/02/18 07:30 HIV 1&2 Antibody Screen Negative HIV P24 Antigen Negative labs reviewed Assessment: 01/03/18 17:26 will start suboxoen 2mg daily for withdrawwl sx not to be prescribed when she leaves rehab unless she finds a program for coninuation of treatment. do nto escalate doseunless program identiafied and patietn agress to aftercare. [id number] tid ordered for withdrawal sx.
[2018-01-03] MEDS: PANTOPRAZOLE 40 MG TABLET (FP) PO SCH (18:54)
[2018-01-03] MEDS: BUPRENORPHINE/NALOXONE 2 MG/0.5 MG FILM PACKET SL SCH (18:55)
[2018-01-03] MEDS: THIAMINE HCL 100 MG TABLET (FP) PO SCH (21:32)
[2018-01-03] MEDS: GABAPENTIN 100 MG CAPSULE (FP) PO SCH (21:35)
[2018-01-04] MEDS: GABAPENTIN 100 MG CAPSULE (FP) PO SCH ×3 (06:57→21:42)
[2018-01-04] MEDS: CLOTRIMAZOLE 10 MG TROCHE (FP) PO SCH ×5 (06:58→21:42)
[2018-01-04] MEDS: ACETAMINOPHEN 325 MG TABLET (FP) PO PRN (07:01)
[2018-01-04] MEDS: AMOXICILLIN 500 MG CAPSULE (FP) PO SCH ×2 (10:04→21:41)
[2018-01-04] MEDS: PRENATAL VITAMINS W/ FOLIC ACID TABLET (FP) PO SCH (10:05)
[2018-01-04] MEDS: PANTOPRAZOLE 40 MG TABLET (FP) PO SCH (10:05)
[2018-01-04] MEDS: BUPRENORPHINE/NALOXONE 2 MG/0.5 MG FILM PACKET SL SCH (10:05)
[2018-01-04] MEDS: THIAMINE HCL 100 MG TABLET (FP) PO SCH (21:41)
[2018-01-05] MEDS: CLOTRIMAZOLE 10 MG TROCHE (FP) PO SCH ×5 (06:43→21:15)
[2018-01-05] MEDS: GABAPENTIN 100 MG CAPSULE (FP) PO SCH ×3 (06:43→21:14)
[2018-01-05] MEDS: PRENATAL VITAMINS W/ FOLIC ACID TABLET (FP) PO SCH (10:11)
[2018-01-05] MEDS: PANTOPRAZOLE 40 MG TABLET (FP) PO SCH (10:11)
[2018-01-05] MEDS: AMOXICILLIN 500 MG CAPSULE (FP) PO SCH ×2 (10:11→21:13)
[2018-01-05] MEDS: BUPRENORPHINE/NALOXONE 2 MG/0.5 MG FILM PACKET SL SCH (10:12)
[2018-01-05 19:02] LABS: URINE APPEARANCE CLEAR; URINE BILIRUBIN NEGATIVE (NEGATIVE); URINE BLOOD NEGATIVE (NEGATIVE); URINE COLOR YELLOW; URINE GLUCOSE (UA) NEGATIVE (NEGATIVE); URINE KETONE NEGATIVE (NEGATIVE); URINE NITRITE NEGATIVE (NEGATIVE); URINE PROTEIN NEGATIVE (NEGATIVE); URINE UROBILINOGEN 4.0 E.U/dl mg/dL (0.2-1.0)
[2018-01-05 19:04] LABS: URINE LEUK ESTERASE 2+ (NEGATIVE)
[2018-01-05 19:12] LABS: EPI CELLS FEW /HPF (FEW); URINE BACTERIA RARE /hpf (NONE SEEN)
[2018-01-05] MEDS: THIAMINE HCL 100 MG TABLET (FP) PO SCH (21:13)
[2018-01-06] MEDS: GABAPENTIN 100 MG CAPSULE (FP) PO SCH ×3 (06:58→21:54)
[2018-01-06] MEDS: CLOTRIMAZOLE 10 MG TROCHE (FP) PO SCH ×5 (06:58→21:55)
[2018-01-06] MEDS: PRENATAL VITAMINS W/ FOLIC ACID TABLET (FP) PO SCH (10:45)
[2018-01-06] MEDS: AMOXICILLIN 500 MG CAPSULE (FP) PO SCH ×2 (10:45→21:54)
[2018-01-06] MEDS: PANTOPRAZOLE 40 MG TABLET (FP) PO SCH (10:45)
[2018-01-06] MEDS: BUPRENORPHINE/NALOXONE 2 MG/0.5 MG FILM PACKET SL SCH (10:45)
[2018-01-06] MEDS: THIAMINE HCL 100 MG TABLET (FP) PO SCH (21:54)
[2018-01-07] MEDS: CLOTRIMAZOLE 10 MG TROCHE (FP) PO SCH ×3 (06:48→13:12)
[2018-01-07] MEDS: GABAPENTIN 100 MG CAPSULE (FP) PO SCH ×2 (06:48→13:12)
[2018-01-07] MEDS: AMOXICILLIN 500 MG CAPSULE (FP) PO SCH ×2 (10:17→21:51)
[2018-01-07] MEDS: PANTOPRAZOLE 40 MG TABLET (FP) PO SCH (10:18)
[2018-01-07] MEDS: PRENATAL VITAMINS W/ FOLIC ACID TABLET (FP) PO SCH (10:18)
[2018-01-07] MEDS: BUPRENORPHINE/NALOXONE 2 MG/0.5 MG FILM PACKET SL SCH (10:18)
[2018-01-07] MEDS: THIAMINE HCL 100 MG TABLET (FP) PO SCH (21:49)
[2018-01-07] MEDS: ACETAMINOPHEN 325 MG TABLET (FP) PO PRN (21:50)
[2018-01-08] MEDS: ACETAMINOPHEN 325 MG TABLET (FP) PO PRN ×3 (08:35→21:52)
[2018-01-08] MEDS: PANTOPRAZOLE 40 MG TABLET (FP) PO SCH (10:52)
[2018-01-08] MEDS: COLLOIDAL OATMEAL 1 BAR EACH TP PRN (10:52)
[2018-01-08] MEDS: PRENATAL VITAMINS W/ FOLIC ACID TABLET (FP) PO SCH (10:52)
[2018-01-08] MEDS: AMOXICILLIN 500 MG CAPSULE (FP) PO SCH ×2 (10:52→21:50)
[2018-01-08] MEDS: THIAMINE HCL 100 MG TABLET (FP) PO SCH (21:50)
[2018-01-09] MEDS: ACETAMINOPHEN 325 MG TABLET (FP) PO PRN ×2 (06:59→12:09)
[2018-01-09] MEDS: PRENATAL VITAMINS W/ FOLIC ACID TABLET (FP) PO SCH (09:13)
[2018-01-09] MEDS: AMOXICILLIN 500 MG CAPSULE (FP) PO SCH (09:13)
[2018-01-09] MEDS: PANTOPRAZOLE 40 MG TABLET (FP) PO SCH (09:13)
--- NOTE | 2018-01-09 13:54 | PN ---
[facility] Progress Note (SOAP) Subjective: patient c/o continued body pains and opioid withdrawawl sx stopped suboxone Objective: 01/09/18 13:53 Vital Signs - 24 hr 01/09/18 01/09/18 01/09/18 03:30 07:38 12:00 Temperature 97.9 F 98.2 F Pulse Rate 67 65 Respiratory 18 18 17 Rate Blood Pressure 127/75 142/77 Laboratory Tests 01/02/18 01/05/18 07:30 13:29 Urine Color Yellow Urine Appearance Clear Urine pH 7.0 D Ur Specific [place] 1.008 Urine Protein Negative Urine Glucose (UA) Negative Urine Ketones Negative Urine Blood Negative Urine Nitrite Negative Urine Bilirubin Negative Urine Urobilinogen 4.0 e.u/dl H Ur Leukocyte Esterase 2+ H Urine WBC (Auto) 1 Urine RBC (Auto) None Ur Epithelial Cells Few Urine Bacteria Rare HIV 1&2 Antibody Screen Negative HIV P24 Antigen Negative labs reviewed Assessment: 01/09/18 13:53 oud - will restart suboxone, to arrange for aftercare program with counselor. d /c antibioitics prescribed for urti does not want to increase dose above 2mg. 01/09/18 14:02
[2018-01-09] MEDS ORDERED: BUPRENORPHINE/NALOXONE 2 MG/0.5 MG FILM PACKET SL ONE (14:30)
[2018-01-09] MEDS ORDERED: PANTOPRAZOLE 40 MG TABLET (FP) PO SCH (14:45)
[2018-01-09] MEDS: NAPROXEN 500 MG TABLET (FP) PO SCH ×2 (15:33→21:46)
[2018-01-09] MEDS: THIAMINE HCL 100 MG TABLET (FP) PO SCH (21:43)
[2018-01-09] MEDS: cloNIDine HCL 0.1 MG TABLET PO SCH (21:45)
[2018-01-10] MEDS: cloNIDine HCL 0.1 MG TABLET PO SCH ×2 (11:00→22:32)
[2018-01-10] MEDS: BUPRENORPHINE/NALOXONE 2 MG/0.5 MG FILM PACKET SL SCH (11:01)
[2018-01-10] MEDS: PRENATAL VITAMINS W/ FOLIC ACID TABLET (FP) PO SCH (11:02)
[2018-01-10] MEDS: PANTOPRAZOLE 40 MG TABLET (FP) PO SCH (11:02)
[2018-01-10] MEDS: NAPROXEN 500 MG TABLET (FP) PO SCH (11:02)
[2018-01-10] MEDS ORDERED: ONDANSETRON *ODT* 4 MG TABLET SL PRN (11:22)
[2018-01-10] MEDS ORDERED: ONDANSETRON *ODT* 4 MG TABLET SL ONE (11:45)
[2018-01-10] MEDS: ACETAMINOPHEN 325 MG TABLET (FP) PO PRN ×2 (13:30→21:54)
--- NOTE | 2018-01-10 14:51 | PN ---
S Progress Note (SOAP) Subjective: c/o nausea and vomiting this am now better Objective: 01/10/18 14:50 Vital Signs - 24 hr 01/09/18 01/10/18 01/10/18 22:05 03:30 07:19 Temperature 98.5 F Pulse Rate 73 94 H Respiratory 18 17 16 Rate Blood Pressure 116/79 106/71 01/10/18 11:37 Temperature 97.7 F Pulse Rate 82 Respiratory 18 Rate Blood Pressure 116/71 Laboratory Tests 01/02/18 01/05/18 07:30 13:29 Urine Color Yellow Urine Appearance Clear Urine pH 7.0 D Ur Specific [place] 1.008 Urine Protein Negative Urine Glucose (UA) Negative Urine Ketones Negative Urine Blood Negative Urine Nitrite Negative Urine Bilirubin Negative Urine Urobilinogen 4.0 e.u/dl H Ur Leukocyte Esterase 2+ H Urine WBC (Auto) 1 Urine RBC (Auto) None Ur Epithelial Cells Few Urine Bacteria Rare HIV 1&2 Antibody Screen Negative HIV P24 Antigen Negative abnormal Assessment: 01/10/18 14:50 will d/c naprosyn, fluids, bed rest, [place]ie [place]
[2018-01-10] MEDS: NAPROXEN 500 MG TABLET (FP) PO PRN (17:26)
[2018-01-10] MEDS: THIAMINE HCL 100 MG TABLET (FP) PO SCH (21:53)
[2018-01-11] MEDS: ACETAMINOPHEN 325 MG TABLET (FP) PO PRN ×2 (04:53→17:58)
[2018-01-11] MEDS: cloNIDine HCL 0.1 MG TABLET PO SCH ×2 (09:35→22:02)
[2018-01-11] MEDS: PANTOPRAZOLE 40 MG TABLET (FP) PO SCH (09:35)
[2018-01-11] MEDS: PRENATAL VITAMINS W/ FOLIC ACID TABLET (FP) PO SCH (09:35)
[2018-01-11] MEDS: BUPRENORPHINE/NALOXONE 2 MG/0.5 MG FILM PACKET SL SCH (10:45)
[2018-01-11] MEDS: NAPROXEN 500 MG TABLET (FP) PO PRN ×2 (14:17→22:03)
[2018-01-11] MEDS: THIAMINE HCL 100 MG TABLET (FP) PO SCH (22:02)
[2018-01-11] MEDS: IBUPROFEN 600 MG TABLET (FP) PO PRN (23:03)
--- NOTE | 2018-01-11 23:07 | PN ---
S Progress Note Note: ASKED TO SEE PT FOR C/O HEADACHE. CLIENT REPORTED H/A ASSOCIATED WITH NAUSEA FOR PAST 2 DAYS AND SHOOTING PAIN IN HERE HEAD AT TIME. DENIES SHOOTING PAIN AT THIS TIME. SHE TAKES EXCEDRIN AT HOME AND IS REQUESTING A STRONG PAIN RELIEVER OR SOMETHING WITH CAFFEINE. DENIES VISUAL CHANGES, WEAKNESS, SOB, C.P. Last Vital Signs Temp Pulse Resp BP Pulse Ox 98.2 F 72 18 118/80 01/11/18 07:30 01/11/18 20:35 01/11/18 07:30 01/11/18 20:35 LYING IN BED NAD AROUSABLE HEENT: NCAT, PERRLA MIGRAINE DIGGS C/W ZOFRAN ORDERED DC NAPROXEN START MOTRIN 600 MG PO Q6 PRN CONT TO MONITOR FOR WORSENING SX'S
[2018-01-12] MEDS: PANTOPRAZOLE 40 MG TABLET (FP) PO SCH (10:45)
[2018-01-12] MEDS: PRENATAL VITAMINS W/ FOLIC ACID TABLET (FP) PO SCH (10:45)
[2018-01-12] MEDS: ACETAMINOPHEN 325 MG TABLET (FP) PO PRN (10:46)
[2018-01-12] MEDS: BUPRENORPHINE/NALOXONE 2 MG/0.5 MG FILM PACKET SL SCH (10:46)
[2018-01-12] MEDS: cloNIDine HCL 0.1 MG TABLET PO SCH ×2 (10:46→21:55)
[2018-01-12] MEDS: IBUPROFEN 600 MG TABLET (FP) PO PRN ×2 (12:20→22:23)
[2018-01-12] MEDS: MAG HYDROX/AL HYDROX/SIMETH 30 ML UNIT-DOSE CUP PO PRN ×2 (12:20→22:24)
[2018-01-12] MEDS: THIAMINE HCL 100 MG TABLET (FP) PO SCH (21:55)
[2018-01-13] MEDS: PANTOPRAZOLE 40 MG TABLET (FP) PO SCH (10:27)
[2018-01-13] MEDS: cloNIDine HCL 0.1 MG TABLET PO SCH ×2 (10:27→22:01)
[2018-01-13] MEDS: BUPRENORPHINE/NALOXONE 2 MG/0.5 MG FILM PACKET SL SCH (10:27)
[2018-01-13] MEDS: PRENATAL VITAMINS W/ FOLIC ACID TABLET (FP) PO SCH (10:27)
[2018-01-13] MEDS: ACETAMINOPHEN 325 MG TABLET (FP) PO PRN ×2 (10:28→22:00)
[2018-01-13] MEDS: THIAMINE HCL 100 MG TABLET (FP) PO SCH (21:59)
[2018-01-14] MEDS: PANTOPRAZOLE 40 MG TABLET (FP) PO SCH (10:17)
[2018-01-14] MEDS: PRENATAL VITAMINS W/ FOLIC ACID TABLET (FP) PO SCH (10:17)
[2018-01-14] MEDS: cloNIDine HCL 0.1 MG TABLET PO SCH (10:17)
[2018-01-14] MEDS: BUPRENORPHINE/NALOXONE 2 MG/0.5 MG FILM PACKET SL SCH (11:00)
[2018-01-14] MEDS: THIAMINE HCL 100 MG TABLET (FP) PO SCH (21:39)
[2018-01-14] MEDS: ACETAMINOPHEN 325 MG TABLET (FP) PO PRN (21:51)
[2018-01-15 07:05] VITALS: BP 100/65; PULSE 79; TEMP 98
[2018-01-15] MEDS: MAG HYDROX/AL HYDROX/SIMETH 30 ML UNIT-DOSE CUP PO PRN (07:09)
--- NOTE | 2018-01-15 09:12 | PN ---
Psychiatric Progress Note Vital Signs: Vital Signs Period Temp Pulse Resp BP Sys/Mullen Pulse Ox Last 24 Hr 98.0 F 69-79 18-18 100-118/65-77 Date of Session: 01/15/18 Chief Complaint:: Discharge visit HPI: Patient addressed Cocaine and Opioid dependence. ROS: GERD Current Medications: Active Medications Generic Name Dose Route Start Last Admin Trade Name Freq PRN Reason Stop Dose Admin Acetaminophen 650 mg 01/01/18 12:59 01/14/18 21:51 Tylenol - PO 650 mg Q4H PRN Administration FEVER Al Hydroxide/Mg Hydroxide 30 ml 01/01/18 12:59 01/15/18 07:09 Mylanta Oral Suspension - PO 30 ml Q6H PRN Administration DYSPEPSIA Buprenorphine/Naloxone 1 each 01/10/18 10:00 01/14/18 11:00 Suboxone 2mg/0.5mg Sl Film - SL Not Given DAILY RONEL Colloidal Oatmeal 1 applic 01/03/18 12:02 01/08/18 10:52 Aveeno Soap - TP 1 applic DAILY PRN Administration HYGEINE Eucalyptus/Menthol/Phenol/Sorbitol 1 each 01/01/18 12:59 01/09/18 09:15 Cepastat Lozenge - MM 1 each Q4H PRN Administration SORE THROAT Guaifenesin 10 ml 01/01/18 12:59 Robitussin Dm - PO Q6H PRN COUGH Hydroxyzine Pamoate 50 mg 01/01/18 12:59 01/11/18 22:02 Vistaril - PO 50 mg Q4H PRN Administration AGITATION Ibuprofen 600 mg 01/11/18 22:59 01/12/18 22:23 Motrin - PO 600 mg Q6H PRN Administration FEVER Magnesium Citrate 300 ml 01/01/18 12:59 Citroma - PO Q48H PRN CONSTIPATION Magnesium Hydroxide 30 ml 01/01/18 12:59 Milk Of Magnesia - PO DAILY PRN CONSTIPATION Ondansetron HCl 4 mg 01/10/18 11:22 01/11/18 23:06 Zofran Odt - SL 4 mg Q6H PRN Administration NAUSEA AND/OR VOMITING Pantoprazole Sodium 40 mg 01/10/18 10:00 01/14/18 10:17 Protonix - PO 40 mg DAILY RONEL Administration Multivit/Folic Acid/Iron 1 tab 01/02/18 10:00 01/14/18 10:17 Vitamins (Sjr) - PO 1 tab DAILY RONEL Administration Pseudoephedrine/Triprolidine 1 combo 01/01/18 12:59 Actifed - PO TID PRN NASAL CONGESTION Thiamine HCl 100 mg 01/01/18 22:00 01/14/18 21:39 Vitamin B1 - PO 100 mg HS RONEL Administration Current Side Effect: No Lab tests ordered: No Lab tests reviewed: Yes Provider note:: [facility] Total face to face time:: 25 Psychiatric Treatment Plan - Problem List (1) Cocaine dependence, uncomplicated Current Visit: Yes (2) GERD (gastroesophageal reflux disease) Current Visit: Yes Qualifiers: (3) Opioid dependence Current Visit: Yes
[2018-01-15] MEDS: PRENATAL VITAMINS W/ FOLIC ACID TABLET (FP) PO SCH (09:31)
[2018-01-15] MEDS: BUPRENORPHINE/NALOXONE 2 MG/0.5 MG FILM PACKET SL SCH (09:31)
[2018-01-15] MEDS: PANTOPRAZOLE 40 MG TABLET (FP) PO SCH (09:31)
== END 2018-01-15 10:49 | disposition home or self-care (01) | DRG 772 ==
LOC: YASAS 11:34 → Y3E 11:35
PROVIDERS: ADMIT Psychiatry & Neurology Psychiatry; ATTEND Psychiatry & Neurology Psychiatry
PROC: HZ42ZZZ Group Counseling for Substance Abuse Treatment, Cognitive-Behavioral (ICD-10-PCS; principal; 2018-01-01)
DX: F11.20 Opioid dependence, uncomplicated (principal); F14.20 Cocaine dependence, uncomplicated; K21.9 Gastro-esophageal reflux disease without esophagitis
CPT/HCPCS: 36415; 71046-TC-FY; 81003; 81015; 87389; J0735

== ENCOUNTER 2021-07-11 11:43 | Inpatient (IN) | payer OTHER ==
[2021-07-11 12:51] VITALS: BMI 25.0
[2021-07-11] MEDS ORDERED: ACETAMINOPHEN 325 MG TABLET (FP) PO PRN ×2 (15:42)
[2021-07-11] MEDS ORDERED: MAGNESIUM CITRATE 300 ML BOTTLE PO PRN (15:42)
[2021-07-11] MEDS ORDERED: MENTHOL/PHENOL 1 EACH UD MM PRN (15:42)
[2021-07-11] MEDS ORDERED: hydrOXYzine PAMOATE 25 MG CAPSULE (FP) PO PRN (15:42)
[2021-07-11] MEDS ORDERED: MAG HYDROX/AL HYDROX/SIMETH 30 ML UNIT-DOSE CUP PO PRN (15:42)
[2021-07-11] MEDS ORDERED: IBUPROFEN 400 MG TABLET (FP) PO PRN (15:42)
[2021-07-11] MEDS ORDERED: MAGNESIUM HYDROX 2400MG/30ML ORAL SUSPENSION 30 ML CUP PO PRN (15:42)
[2021-07-11] MEDS ORDERED: ONDANSETRON *ODT* 4 MG TABLET SL PRN (15:42)
[2021-07-11] MEDS ORDERED: BISMUTH SUBSALICYLATE 524 MG/30 ML PO PRN (15:42)
[2021-07-11] MEDS ORDERED: MELATONIN 5 MG TABLETS PO SCH (22:00)
[2021-07-11] MEDS ORDERED: THIAMINE HCL 100 MG TABLET (FP) PO SCH (22:00)
[2021-07-12] MEDS ORDERED: diazePAM 5 MG TABLET PO PRN (09:13)
[2021-07-12 09:51] VITALS: BP 137/74; PULSE 66; TEMP 97
[2021-07-12] MEDS ORDERED: PRENATAL VITAMINS W/ FOLIC ACID TABLET (FP) PO SCH (10:00)
[2021-07-12 11:07] LABS: HEMATOCRIT 29.2 % (32.4-45.2); HEMOGLOBIN 10.2 GM/dL (10.7-15.3); MCH 30.5 pg (25.7-33.7); MCHC 34.9 g/dl (32.0-36.0); MEAN CELL VOLUME 87.4 fl (80-96); MEAN PLT VOLUME 8.2 fl (7.5-11.1); PLATELET COUNT 309 10^3/uL (134-434); RBC 3.34 M/mm3 (3.60-5.2); RDW 17.3 % (11.6-15.6); WHITE BLOOD COUNT 6.6 K/mm3 (4.0-10.0)
[2021-07-12 11:19] LABS: BILIRUBIN,TOTAL 0.8 mg/dL (0.2-1); BLOOD UREA NITROGEN 11.2 mg/dL (7-18); TOT PROT 7.4 g/dl (6.4-8.2)
[2021-07-12 11:22] LABS: CALCIUM 8.7 mg/dL (8.5-10.1); CREATININE 0.7 mg/dL (0.55-1.3)
[2021-07-12 12:11] LABS: HIV INTERPRETATION NEGATIVE (NEGATIVE)
== END 2021-07-12 18:35 | disposition other institution (70) | DRG 897 ==
LOC: YASAS 11:43 → Y6N 15:28 → UNDOADMIN 15:28 → Y6N 18:46
PROVIDERS: ADMIT Allergy & Immunology; ATTEND Allergy & Immunology
PROC: HZ2ZZZZ Detoxification Services for Substance Abuse Treatment (ICD-10-PCS; principal; 2021-07-11)
DX: F11.23 Opioid dependence with withdrawal (principal); F10.230 Alcohol dependence with withdrawal, uncomplicated; L81.9 Disorder of pigmentation, unspecified; R26.89 Other abnormalities of gait and mobility; Z99.89 Dependence on other enabling machines and devices
CPT/HCPCS: 36415; 80053; 85027; 86780; 87389; C9803; U0003; U0005

== ENCOUNTER 2021-07-12 18:37 | Inpatient (IN) | payer OTHER ==
[2021-07-12] MEDS ORDERED: MAGNESIUM HYDROX 2400MG/30ML ORAL SUSPENSION 30 ML CUP PO PRN (19:22)
[2021-07-12] MEDS ORDERED: IBUPROFEN 400 MG TABLET (FP) PO PRN (19:22)
[2021-07-12] MEDS ORDERED: MENTHOL/PHENOL 1 EACH UD MM PRN (19:22)
[2021-07-12] MEDS ORDERED: ACETAMINOPHEN 325 MG TABLET (FP) PO PRN (19:22)
[2021-07-12] MEDS ORDERED: MAG HYDROX/AL HYDROX/SIMETH 30 ML UNIT-DOSE CUP PO PRN (19:22)
[2021-07-12] MEDS ORDERED: P-EPHED 60MG/TRIPROLIDI 2.5MG TABLET PO PRN (19:22)
[2021-07-12] MEDS ORDERED: LOPERAMIDE HCL 2 MG CAPSULE PO PRN (19:22)
[2021-07-12] MEDS ORDERED: guaiFENesin 200 MG/10 ML 10 ML UNIT-DOSE CUPS PO PRN (19:22)
[2021-07-12] MEDS ORDERED: MAGNESIUM CITRATE 300 ML BOTTLE PO PRN (19:22)
[2021-07-12] MEDS: MELATONIN 5 MG TABLETS PO SCH (23:15)
[2021-07-12] MEDS: THIAMINE HCL 100 MG TABLET (FP) PO SCH (23:16)
[2021-07-12] MEDS: hydrOXYzine PAMOATE 25 MG CAPSULE (FP) PO SCH (23:16)
[2021-07-13] MEDS: hydrOXYzine PAMOATE 25 MG CAPSULE (FP) PO SCH ×5 (07:07→22:19)
[2021-07-13] MEDS: PRENATAL VITAMINS W/ FOLIC ACID TABLET (FP) PO SCH (11:12)
[2021-07-13] MEDS: THIAMINE HCL 100 MG TABLET (FP) PO SCH (22:19)
[2021-07-13] MEDS: MELATONIN 5 MG TABLETS PO SCH (22:19)
[2021-07-14] MEDS: hydrOXYzine PAMOATE 25 MG CAPSULE (FP) PO SCH ×2 (06:57→10:39)
[2021-07-14] MEDS ORDERED: hydrOXYzine PAMOATE 25 MG CAPSULE (FP) PO PRN (10:31)
[2021-07-14] MEDS: PRENATAL VITAMINS W/ FOLIC ACID TABLET (FP) PO SCH (10:36)
[2021-07-14] MEDS ORDERED: METHOCARBAMOL 500 MG TABLET PO PRN ×2 (14:28→15:54)
[2021-07-14] MEDS ORDERED: cloNIDine HCL 0.1 MG TABLET PO PRN (14:28)
[2021-07-14 16:16] VITALS: BP 150/105; PULSE 90; TEMP 97.3
[2021-07-14] MEDS: MELATONIN 5 MG TABLETS PO SCH (21:00)
[2021-07-14] MEDS: THIAMINE HCL 100 MG TABLET (FP) PO SCH (21:00)
[2021-07-15] MEDS ORDERED: PT OWN MED DRAWER 7, Y5N ONE (04:43)
== END 2021-07-15 07:25 | disposition short-term general hospital (02) | DRG 895 ==
LOC: YASAS 18:37 → Y5N 18:39
PROVIDERS: ADMIT Allergy & Immunology; ATTEND Allergy & Immunology
PROC: HZ42ZZZ Group Counseling for Substance Abuse Treatment, Cognitive-Behavioral (ICD-10-PCS; principal; 2021-07-12)
DX: F11.20 Opioid dependence, uncomplicated (principal); F14.20 Cocaine dependence, uncomplicated; F10.20 Alcohol dependence, uncomplicated; F17.210 Nicotine dependence, cigarettes, uncomplicated; K21.9 Gastro-esophageal reflux disease without esophagitis; R42 Dizziness and giddiness; R07.89 Other chest pain; R94.31 Abnormal electrocardiogram [ECG] [EKG]; Q82.8 Other specified congenital malformations of skin
CPT/HCPCS: 93005; 93010; J0735

== ENCOUNTER 2021-07-14 17:16 | Inpatient (IN) | payer OTHER ==
[2021-07-14 18:29] VITALS: BMI 23.1
[2021-07-14] MEDS ORDERED: ACETAMINOPHEN 325 MG TABLET (FP) ONE (19:33)
[2021-07-14] MEDS ORDERED: ACETAMINOPHEN 325 MG TABLET (FP) PO ONE (19:33)
[2021-07-14 20:23] LABS: EOS % 0.2 % (0-4.5); HEMATOCRIT 35.5 % (32.4-45.2); HEMOGLOBIN 12.8 GM/dL (10.7-15.3); LYMPH % 27.8 % (8-40); MCH 31.1 pg (25.7-33.7); MEAN CELL VOLUME 86.3 fl (80-96); MEAN PLT VOLUME 7.6 fl (7.5-11.1); MONO % 9.8 % (3.8-10.2); NEUT % 60.2 % (42.8-82.8); PLATELET COUNT 370 10^3/uL (134-434); RBC 4.11 M/mm3 (3.60-5.2); RDW 17.3 % (11.6-15.6); WHITE BLOOD COUNT 6.8 K/mm3 (4.0-10.0)
[2021-07-14 20:36] LABS: CALCIUM 9.3 mg/dL (8.5-10.1)
[2021-07-14 20:37] LABS: ALBUMIN 3.3 g/dl (3.4-5.0); BLOOD UREA NITROGEN 9.5 mg/dL (7-18); MAGNESIUM 2.2 mg/dL (1.8-2.4)
[2021-07-14 20:40] LABS: CREATININE 0.8 mg/dL (0.55-1.3); PHOSPHOROUS 3.9 mg/dL (2.5-4.9)
[2021-07-14 20:42] LABS: BILIRUBIN,TOTAL 1.2 mg/dL (0.2-1); TOT PROT 8.9 g/dl (6.4-8.2)
[2021-07-14] MEDS ORDERED: methaDONE HCL 10 MG TABLET PO ONE (22:39)
[2021-07-14] MEDS ORDERED: methaDONE HCL 10 MG TABLET ONE (22:45)
[2021-07-15] MEDS: ACETAMINOPHEN 325 MG TABLET (FP) PO PRN ×3 (03:42→20:31)
[2021-07-15 06:37] LABS: BASO % 1.1 % (0-2.0); EOS % 0.4 % (0-4.5); HEMATOCRIT 33.8 % (32.4-45.2); HEMOGLOBIN 12.1 GM/dL (10.7-15.3); LYMPH % 28.1 % (8-40); MCH 30.7 pg (25.7-33.7); MCHC 35.8 g/dl (32.0-36.0); MEAN CELL VOLUME 85.8 fl (80-96); MEAN PLT VOLUME 7.7 fl (7.5-11.1); MONO % 11.7 % (3.8-10.2); NEUT % 58.7 % (42.8-82.8); PLATELET COUNT 353 10^3/uL (134-434); RBC 3.94 M/mm3 (3.60-5.2); RDW 17.1 % (11.6-15.6); WHITE BLOOD COUNT 6.2 K/mm3 (4.0-10.0)
[2021-07-15 06:54] LABS: CHLORIDE 104 mmol/L (98-107); SODIUM 138 mmol/L (136-145)
[2021-07-15 06:57] LABS: ALBUMIN 3.4 g/dl (3.4-5.0); ANION GAP 8 MMOL/L (8-16); BLOOD UREA NITROGEN 9.7 mg/dL (7-18); CALCIUM 9.4 mg/dL (8.5-10.1); CO2 26 mmol/L (21-32); GLUCOSE,RANDOM 109 mg/dL (74-106); MAGNESIUM 2.2 mg/dL (1.8-2.4)
[2021-07-15 07:00] LABS: CHOLESTEROL 170 mg/dL (50-200); CREATININE 0.8 mg/dL (0.55-1.3); PHOSPHOROUS 3.8 mg/dL (2.5-4.9); SGOT/AST 51 U/L (15-37); SGPT/ALT 17 U/L (13-61)
[2021-07-15 07:01] LABS: BILIRUBIN,TOTAL 1.2 mg/dL (0.2-1); LDL CHOLESTEROL (ONLY SJRH) 109 mg/dL (5-100); TRIGLYCERIDES 71 mg/dL (0-150)
[2021-07-15 07:02] LABS: TOT PROT 9.1 g/dl (6.4-8.2)
[2021-07-15 07:03] LABS: ALK PHOS 30 U/L (45-117); HDL CHOLESTEROL 52 mg/dL (40-60)
[2021-07-15] MEDS ORDERED: SODIUM ZIRCONIUM CYCLOSILICATE (LOKELMA) 5 GM PACKET PO ONE (08:45)
[2021-07-15] MEDS: FOLIC ACID 1 MG TABLET (FP) PO SCH (11:49)
[2021-07-15] MEDS: THIAMINE HCL 100 MG TABLET (FP) PO SCH (11:49)
[2021-07-15] MEDS: ENOXAPARIN NA (PORCINE) 40 MG/0.4 ML DISP.SYRIN SQ SCH (11:49)
[2021-07-15] MEDS ORDERED: methaDONE HCL 10 MG TABLET PO ONE (15:52)
[2021-07-15] MEDS ORDERED: cloNIDine HCL 0.1 MG TABLET PO PRN (15:53)
[2021-07-16] MEDS ORDERED: IBUPROFEN 400 MG TABLET (FP) PO ONE (00:08)
[2021-07-16 05:50] LABS: HEMATOCRIT 34.5 % (32.4-45.2); HEMOGLOBIN 12.2 GM/dL (10.7-15.3); MCH 30.7 pg (25.7-33.7); MCHC 35.5 g/dl (32.0-36.0); MEAN CELL VOLUME 86.7 fl (80-96); MEAN PLT VOLUME 7.6 fl (7.5-11.1); PLATELET COUNT 347 10^3/uL (134-434); RBC 3.98 M/mm3 (3.60-5.2); RDW 16.9 % (11.6-15.6); WHITE BLOOD COUNT 7.1 K/mm3 (4.0-10.0)
[2021-07-16 06:03] LABS: ALBUMIN 3.5 g/dl (3.4-5.0); CALCIUM 9.5 mg/dL (8.5-10.1)
[2021-07-16 06:04] LABS: BLOOD UREA NITROGEN 10.8 mg/dL (7-18)
[2021-07-16 06:07] LABS: CREATININE 0.8 mg/dL (0.55-1.3)
[2021-07-16 06:08] LABS: BILIRUBIN,TOTAL 1.3 mg/dL (0.2-1); TOT PROT 8.9 g/dl (6.4-8.2)
[2021-07-16 09:14] LABS: ANISOCYTOSIS 2+; MACROCYTOSIS 0; PLATELET ESTIMATE NORMAL; TARGET CELLS 2+
[2021-07-16] MEDS: ENOXAPARIN NA (PORCINE) 40 MG/0.4 ML DISP.SYRIN SQ SCH (09:49)
[2021-07-16] MEDS: THIAMINE HCL 100 MG TABLET (FP) PO SCH (09:49)
[2021-07-16] MEDS: FOLIC ACID 1 MG TABLET (FP) PO SCH (09:49)
[2021-07-16] MEDS: ACETAMINOPHEN 325 MG TABLET (FP) PO PRN (09:49)
[2021-07-16] MEDS ORDERED: methaDONE HCL 10 MG TABLET PO ONE (19:57)
[2021-07-17 06:49] VITALS: TEMP 98.7
[2021-07-17 08:23] VITALS: BP 129/85; PULSE 70
[2021-07-17] MEDS: FOLIC ACID 1 MG TABLET (FP) PO SCH (09:36)
[2021-07-17] MEDS: ENOXAPARIN NA (PORCINE) 40 MG/0.4 ML DISP.SYRIN SQ SCH (09:36)
[2021-07-17] MEDS: THIAMINE HCL 100 MG TABLET (FP) PO SCH (09:36)
== END 2021-07-17 10:15 | disposition home or self-care (01) | DRG 313 ==
LOC: JER 17:16 → JERBED 23:22 → OBSVTOIN 23:22 → J2W 07-15 03:07 → UNDODISIN 07-15 07:25
PROVIDERS: ADMIT Internal Medicine; ATTEND Internal Medicine
PROC: HZ2ZZZZ Detoxification Services for Substance Abuse Treatment (ICD-10-PCS; principal; 2021-07-14)
DX: R07.89 Other chest pain (principal); C90.00 Multiple myeloma not having achieved remission; F14.20 Cocaine dependence, uncomplicated; F10.10 Alcohol abuse, uncomplicated; K21.9 Gastro-esophageal reflux disease without esophagitis; F17.210 Nicotine dependence, cigarettes, uncomplicated; F19.10 Other psychoactive substance abuse, uncomplicated
CPT/HCPCS: 36415; 71045-TC-FY; 80053; 80061; 83036; 83735; 84100; 84443; 84484; 85025; 93005; 93010; 99285-25; C9803; G0378; J0735; U0003; U0005